=== PATIENT | female | born 1970 | race Caucasian/White ===

== ENCOUNTER 2018-09-05 21:00 | Emergency (ER) | payer OTHER ==
[~2018-09-05] VITALS: Ht 167.6 cm; Wt 76.2 kg
[2018-09-05 21:19] VITALS: BP 118/76; Ht 167.6 cm; Wt 76.2 kg
== END 2018-09-05 22:47 | disposition left against medical advice (07) ==
LOC: ED 21:00
DX: S71.111A Laceration without foreign body, right thigh, initial encounter (principal); E03.9 Hypothyroidism, unspecified; F31.9 Bipolar disorder, unspecified; W45.8XXA Other foreign body or object entering through skin, initial encounter; Y93.89 Activity, other specified; Y92.89 Other specified places as the place of occurrence of the external cause; Y99.8 Other external cause status
CPT/HCPCS: J2001